=== PATIENT | female | born 1955 | race American Indian/Alaskan Native ===

== ENCOUNTER 2016-03-02 08:26 | Outpatient (CLI) | payer OTHER ==
--- NOTE | 2016-03-02 12:43 | Cat Scan Report ---
CT CHEST, ABDOMEN AND PELVIS WITH CONTRAST: 03/02/16 08:26:00 CLINICAL: History of right breast cancer. COMPARISON: 07/30/12 TECHNIQUE: Volumetric acquisition and 1.25 millimeter scan reconstructions after the uneventful intravenous injection of 100 cc of Omnipaque 300. Consent was obtained prior to the administration of the contrast. Oral contrast was also given. FINDINGS: Chest: The lungs are clear. No pulmonary nodule or mass. Normal aorta, heart and pulmonary arteries. Normal esophagus and trachea. No mediastinal or hilar lymphadenopathy.No axillary or supraclavicular lymphadenopathy. Status post right mastectomy with implant reconstruction and left breast augmentation. Implants are intact. Abdomen: Normal liver contour, size in overall density. Stable benign subcentimeter right hepatic hypodensities. No liver mass. The gallbladder and bile ducts are normal. Normal stomach, duodenum, pancreas and spleen. Normal adrenal glands and kidneys. The renal collecting systems and ureters are nondilated. Normal aorta and inferior vena cava. No lymphadenopathy.No ascites.The small bowel is normal. Normal ascending, transverse and descending colon. An appendix is not identified. Pelvis: Absence of the uterus and normal vaginal cuff. Normal urinary bladder and rectum. Normal sigmoid colon. No pelvic mass, lymphadenopathy or fluid. Bone windows demonstrate no suspicious bone lesion. IMPRESSION:1. Negative study with no evidence of disease recurrence or metastasis. 2. Stable benign hepatic hypodensities. 3. Status post appendectomy and total abdominal hysterectomy.
== END 2016-03-02 08:27 | disposition home or self-care (01) ==
LOC: SPVIMAG 08:26
PROVIDERS: ATTEND Internal Medicine Hematology & Oncology
DX: C50.911 Malignant neoplasm of unspecified site of right female breast (principal); Z90.11 Acquired absence of right breast and nipple; Z90.710 Acquired absence of both cervix and uterus; Z98.82 Breast implant status; Z98.890 Other specified postprocedural states
CPT/HCPCS: 71260; 74177; Q9967

== ENCOUNTER 2016-10-10 08:11 | Outpatient (CLI) | payer OTHER ==
--- NOTE | 2016-10-10 10:22 | Mammography Report ---
BONE DEXA:10/10/16 08:11:00 CLINICAL: Postmenopausal. Breast cancer history status post right mastectomy. COMPARISON: 02/21/14 TECHNIQUE: Two site bone DEXA performed on an [employer] scanner. FINDINGS: The average BMD of the lumbar spine L1-L4 is 1.032g/cm squared with a T-score of -0.1 and a Z-score of +1.4. This compares to 1.047g/cm squared on the last exam and represents a -1.4% change from the previous baseline. The average BMD of the left hip is 0.864g/cm squared with a T-score of -0.6 and a Z-score of +0.4. This compares to 0.840g/cm squared on the last exam and represents a +2.9% change from the previous baseline. However, the left femoral neck BMD is 0.667g/cm squared with a T score of -1.6 and a Z score of -0.3. IMPRESSION: 1. WHO classification: Normal with average fracture risk based on spine measurements. A slight decline in spine BMD compared to the prior exam. 2. WHO classification: Osteopenia with increased fracture risk based on left femoral neck measurements. A modest improvement in overall left hip BMD compared to the prior exam. RECOMMENDATION: Clinical correlation and routine screening. DEFINITIONS: BMD = Bone Mineral Density T-score = BMD related to mean peak bone mass of young adult (mean expressed in Standard Deviation) Z-score = Age matched BMD expressed in SD World Health Organization (WHO) Diagnostic Criteria Normal T-score > -1 SD Osteopenia T-score between -1 and -2.4 SD Osteoporosis T-score -2.5 SD or below NOTE: BMD is not the only risk factor for fracture; also consider factors such as the patient's age, risk of falling, previous osteoporotic fracture, family history of osteoporotic fractures, current smoker, and low body weight. Z-scores are not calculated if >80 years of age.
== END 2016-10-10 08:12 | disposition home or self-care (01) ==
LOC: SPVWC 08:11
PROVIDERS: ATTEND Internal Medicine Hematology & Oncology
DX: M85.88 Other specified disorders of bone density and structure, other site (principal); Z78.0 Asymptomatic menopausal state; Z90.11 Acquired absence of right breast and nipple
CPT/HCPCS: 77080